=== PATIENT | female | born 1970 | race Caucasian/White ===

== ENCOUNTER 2018-02-09 10:10 | Day surgery (SDC) | payer OTHER ==
--- NOTE | 2018-02-09 08:03 | HP ---
DATE OF SURGERY: 02/09/2018 HISTORY OF PRESENT ILLNESS: The patient is a 47 year-old with incarcerated ventral hernia increasingly symptomatic desires repair. PAST MEDICAL HISTORY: Hypertension, reflux. Cervical cancer. PAST SURGICAL HISTORY: Cholecystectomy, tubal, port, lung biopsy and complete colonoscopy in the past. MEDICATIONS: Lisinopril hydrochlorothiazide. ALLERGIES: NKDA. FAMILY HISTORY: Cervical cancer. SOCIAL HISTORY: One pack per day smoker. Denies alcohol abuse. REVIEW OF SYSTEMS: Twelve systems reviewed per admission assessment. No chest pain or palpitations other systems negative or noncontributory as above and per preadmission questionnaire. PHYSICAL EXAMINATION: GENERAL: No acute distress. HEENT: Sclerae nonicteric. NECK: No JVD. CHEST: Clear to auscultation. CVS: Regular rate and rhythm. ABDOMEN: Incarcerated ventral hernia and prior incisions in the abdomen otherwise no peritoneal signs. EXTREMITIES: No significant edema. NEURO: Alert, oriented, moving extremities symmetrically. No gross motor deficits noted. LAB DATA AND TESTS: CT scan showed incarcerated abdominal wall hernia. IMPRESSION: Incarcerated ventral incisional hernia. I feel the patient will benefit from repair. Discussed the options and after a long discussion I feel she will benefit from laparoscopic assisted incarcerated ventral hernia repair with mesh possible open. Risks and benefits explained in detail but not limited to bleeding or infection, risk of trocar injury or hernia, small risk of bowel, bladder, blood vessel issues or injury possibly requiring other procedures, risk of adhesion or scar formation of obstruction, risk of hernia recurrence, remote risk of mesh fracture or failure possibly creating issues with the viscera or other structures possibly requiring other procedure ongoing morbidity, risk of hematoma or seroma formation, risk wound infection, risk if the mesh became infected likely would need to be removed, general risk of aches, pains, burning, numbness possibility of salvage determiner or chronic in nature, general risk of anesthesia, deep venous thrombosis, pulmonary embolism, pneumonia but not limited to as well as overall risk of hernia recurrence. She understands and agrees to the planned procedure and will proceed with laparoscopic assisted incarcerated ventral hernia repair with mesh possible open pending operative findings.
[~2018-02-09 10:10] MED LIST: CEFAZOLIN 2 GM-D5W BAG** 2 GM/50 ML ML IV SCH; Lactated Ringers 1,000 ML IV ONE; Lactated Ringers 1,000 ML IV SCH; Sensorcaine 0.25% 10 ML ONE
[2018-02-09] MEDS ORDERED: DIPRIVAN 200 MG/20 ML IV ONE (10:11)
[2018-02-09] MEDS ORDERED: SUBLIMAZE 100 MCG/2 ML IV ONE (10:11)
[2018-02-09] MEDS ORDERED: CEFAZOLIN 2 GM-D5W BAG** 2 GM/50 ML ML IV ONE (10:11)
[2018-02-09] MEDS ORDERED: ATROPINE SULFATE 1MG IV ONE (10:11)
[2018-02-09] MEDS ORDERED: Quelicin Fliptop 200 MG/10 ML IV ONE (10:11)
[2018-02-09] MEDS ORDERED: Xopenex 1.25 MG/0.5 ML UD NEBULE IH ONE ×2 (12:55→13:06)
[2018-02-09 14:03] LABS: TROPONIN < 0.012 ng/mL (0.000-0.034)
[2018-02-09 15:59] VITALS: O2SAT 99
[2018-02-09 17:46] VITALS: BP 147/65; PULSE 56
--- NOTE | 2018-02-11 08:09 | OP ---
SURGERY DATE/TIME: 02/10/2018 1220 INDICATIONS: The patient was scheduled for ventral hernia repair. Seen in the preoperative holding area, confirmed the site. DESCRIPTION OF PROCEDURE AND FINDINGS: She is taken to the operating room. General anesthesia induced. In the midst of prepping the patient, the patient had severe bradycardia down to the 5 or 6 range, according to anesthesia, treated with atropine. Her heart rate came back up. Given her marginal airway issues on his inspection when he placed the tube and heavy smoking history it was felt that it was not safe to proceed with this elective non-emergent surgery without further cardiac and medical clearance. Therefore the procedure was canceled. He then extubated the patient and sent the patient to the recovery room. Contacted the family doctor to get follow up with linux kernel developer to see if they wanted evaluate the patient in the hospital. Otherwise follow up with the linux kernel developer and family doctor first. The patient will follow up in our office to reschedule once she gets cardiac and medical clearance.
== END 2018-02-09 17:47 | disposition home or self-care (01) ==
LOC: SDC 10:10
PROVIDERS: ATTEND Surgery
DX: K43.6 Other and unspecified ventral hernia with obstruction, without gangrene (principal); R00.1 Bradycardia, unspecified; I10 Essential (primary) hypertension; G47.30 Sleep apnea, unspecified; Z53.09 Procedure and treatment not carried out because of other contraindication
CPT/HCPCS: 36415; 83874; 84484; 93005; 94250; 94640; J0330; J0461; J0690; J2704; J3010; A9270-GY